=== PATIENT | female | born 1990 | race Caucasian/White ===

== ENCOUNTER 2020-05-07 10:45 | Outpatient (CLI) | payer BC, OTHER ==
[~2020-05-07] VITALS: Ht 180.3 cm; Wt 134.1 kg
[2020-05-07 10:56] VITALS: BP 108/69
[2020-05-07 11:52] LABS: MICROSCOPIC INDICATED
[2020-05-07 11:56] LABS: AMPHETAMINE SCREEN, URINE Negative (Negative); BARBITURATE SCREEN, URINE Negative (Negative); BENZODIAZEPINE SCREEN, URINE Negative (Negative); CANNABINOID SCREEN, URINE Negative (Negative); COCAINE SCREEN, URINE Negative (Negative); METHADONE SCREEN, URINE Negative (Negative); OPIATE SCREEN, URINE Negative (Negative)
== END 2020-05-07 12:35 | disposition home or self-care (01) ==
LOC: LDOP 10:45
PROVIDERS: ATTEND Obstetrics & Gynecology
DX: O26.893 Other specified pregnancy related conditions, third trimester (principal); R10.9 Unspecified abdominal pain; Z3A.35 35 weeks gestation of pregnancy
CPT/HCPCS: 59025; 80307; 81001; 87086

== ENCOUNTER 2020-06-03 06:24 | Inpatient (IN) | payer BC, OTHER ==
[~2020-06-03] VITALS: Ht 177.8 cm; Wt 90.5 kg
[2020-06-03] MEDS ORDERED: FENTANYL PF 100 MCG/2ML IVPush PRN (06:30)
[2020-06-03] MEDS ORDERED: TERBUTALINE 1 MG/ML, 1ML SQ PRN (06:30)
[2020-06-03] MEDS ORDERED: TERBUTALINE 1 MG/ML, 1ML IVPush PRN (06:30)
[2020-06-03] MEDS ORDERED: FENTANYL PF 100 MCG/2ML IV PRN (06:30)
[2020-06-03] MEDS ORDERED: ONDANSETRON 2MG/ML, 2ML IVPush PRN ×2 (06:30→15:30)
[2020-06-03] MEDS ORDERED: CALCIUM CARBONATE 500 MG TAB.CHEW PO PRN (06:30)
[2020-06-03] MEDS ORDERED: OXYTOCIN 30U/ 0.9% NaCL 500ML 500 ML IV ONE (06:30)
[2020-06-03] MEDS ORDERED: OXYTOCIN 30U/ 0.9% NaCL 500ML 500 ML IV PRN (06:30)
[2020-06-03] MEDS ORDERED: NEWBORN KIT ONE (06:57)
[2020-06-03] MEDS ORDERED: LIDOCAINE 1%, 20ML ONE (06:57)
[2020-06-03] MEDS ORDERED: MISOPROSTOL 200 MCG TABLET ONE (06:57)
[2020-06-03] MEDS ORDERED: PLEASE ENTER HEIGHT AND WEIGHT MC SCH (07:00)
[2020-06-03] MEDS ORDERED: OXYTOCIN 30U/ 0.9% NaCL 500ML 500 ML ONE (07:31)
[2020-06-03 07:39] LABS: BASOPHILS % (AUTO) 0 % (0-1); EOSINOPHILS % (AUTO) 1 % (1-7); LYMPHOCYTES % (AUTO) 16 % (22-44); MEAN CORPUSCULAR HEMOGLOBIN 32.3 pg (27.0-34.8); MEAN PLATELET VOLUME 10.1 fL (7.4-10.4); MONOCYTES % (AUTO) 7 % (2-9); NEUTROPHILS % (AUTO) 76 % (42-75); PLATELET COUNT 179 x10^3/uL (130-400); RED BLOOD COUNT 3.77 x10^6/uL (3.82-5.3); RED CELL DISTRIBUTION WIDTH 13.6 % (9.6-15.2)
[2020-06-03] MEDS: LACTATED RINGERS 1,000 ML IV SCH ×4 (07:42→23:30)
[2020-06-03 07:49] LABS: MD NO
[2020-06-03 07:53] VITALS: BP 118/64
[2020-06-03] MEDS ORDERED: PREN1TAB60 PO (08:08)
[2020-06-03] MEDS ORDERED: ACETAMINOPHEN 325 MG TABLET PO STA (14:10)
[2020-06-03] MEDS ORDERED: ACETAMINOPHEN 325 MG TABLET ONE ×2 (14:15→20:31)
[2020-06-03] MEDS ORDERED: FENTANYL/BUPIV./NS/PF 250 ML EPIDCONT ONE (14:27)
[2020-06-03] MEDS ORDERED: BUPIVACAINE 0.25% ONE (14:27)
[2020-06-03] MEDS ORDERED: D5%-LACTATED RINGERS 1,000 ML IV SCH (15:00)
[2020-06-03] MEDS ORDERED: LACTATED RINGERS 1,000 ML IVBOLUS PRN (15:30)
[2020-06-03] MEDS ORDERED: DIPHENHYDRAMINE 50 MG/ML, 1ML IVPush PRN (15:30)
[2020-06-03] MEDS ORDERED: FENTANYL/BUPIV./NS/PF 250 ML EPIDCONT SCH (15:30)
[2020-06-03] MEDS ORDERED: EPHEDRINE 50 MG/ML, 1ML IVPush PRN (15:30)
[2020-06-03] MEDS ORDERED: NALOXONE 0.4 MG/ML, 1ML IVPush PRN (15:30)
[2020-06-03] MEDS ORDERED: ACETAMINOPHEN 325 MG TABLET PO ONE (21:00)
[2020-06-03] MEDS ORDERED: DEXTROSE 47%, 15GM GEL ONE (21:24)
[2020-06-03 22:00] VITALS: BP 98/61
[2020-06-04 02:00] VITALS: BP 100/61
[2020-06-04] MEDS ORDERED: OXYcodone/APAP 5/325MG TABLET ONE (02:25)
[2020-06-04] MEDS ORDERED: IBUPROFEN 600 MG TABLET ONE (02:25)
[2020-06-04] MEDS ORDERED: CARBOPROST TROMETHAMINE 250 MCG/ML, 1ML IM PRN (02:30)
[2020-06-04] MEDS ORDERED: MISOPROSTOL 200 MCG TABLET SL PRN ×3 (02:30)
[2020-06-04] MEDS ORDERED: HYDROcodone/APAP 5/325 TABLET PO PRN ×2 (02:30)
[2020-06-04] MEDS: OXYTOCIN 30U/ 0.9% NaCL 500ML 500 ML IV SCH ×2 (02:30→12:04)
[2020-06-04] MEDS ORDERED: GLYCERIN ADULT SUPP PR PRN (02:30)
[2020-06-04] MEDS ORDERED: CALCIUM CARBONATE 500 MG TAB.CHEW PO PRN (02:30)
[2020-06-04] MEDS ORDERED: BISACODYL 10 MG SUPP PR PRN (02:30)
[2020-06-04] MEDS ORDERED: OXYcodone/APAP 5/325MG TABLET PO PRN (02:30)
[2020-06-04] MEDS ORDERED: ONDANSETRON 2MG/ML, 2ML IV PRN (02:30)
[2020-06-04] MEDS ORDERED: SIMETHICONE 80 MG CHEW TAB PO PRN (02:30)
[2020-06-04] MEDS ORDERED: ACETAMINOPHEN 325 MG TABLET PO PRN (02:30)
[2020-06-04] MEDS ORDERED: IBUPROFEN 800 MG TABLET PO PRN (02:30)
[2020-06-04] MEDS ORDERED: OXYcodone IR 5MG TABLET PO PRN (02:30)
[2020-06-04] MEDS ORDERED: MISOPROSTOL 200 MCG TABLET PO PRN ×3 (02:30)
[2020-06-04] MEDS ORDERED: METHYLERGONOVINE 0.2 MG/ML IM PRN (02:30)
[2020-06-04] MEDS ORDERED: DOCUSATE 100 MG CAPSULE PO PRN (02:30)
[2020-06-04] MEDS ORDERED: METOCLOPRAMIDE 5 MG/ML, 2ML IV PRN (02:30)
[2020-06-04] MEDS ORDERED: MISOPROSTOL 200 MCG TABLET PR PRN ×3 (02:30)
[2020-06-04] MEDS: IBUPROFEN 600 MG TABLET PO PRN ×3 (02:33→14:40)
[2020-06-04] MEDS: OXYcodone/APAP 5/325MG TABLET PO PRN ×5 (02:33→20:39)
[2020-06-04 05:27] LABS: BASOPHILS % (AUTO) 0 % (0-1); EOSINOPHILS % (AUTO) 1 % (1-7); LYMPHOCYTES % (AUTO) 20 % (22-44); MEAN CORPUSCULAR HEMOGLOBIN 32.2 pg (27.0-34.8); MEAN CORPUSCULAR HGB CONC 34.7 g/dL (32.4-35.8); MEAN PLATELET VOLUME 10.5 fL (7.4-10.4); MONOCYTES % (AUTO) 6 % (2-9); NEUTROPHILS % (AUTO) 74 % (42-75); PLATELET COUNT 157 x10^3/uL (130-400); RED BLOOD COUNT 3.38 x10^6/uL (3.82-5.3)
[2020-06-04 05:29] LABS: MD NO
[2020-06-04 05:55] VITALS: BP 102/62
[2020-06-04 08:30] VITALS: BP 102/68
[2020-06-04] MEDS ORDERED: PRENATAL VIT/IRON/FA 1 EACH TABLET PO SCH (09:00)
[2020-06-04 12:02] VITALS: BP 107/71
[2020-06-04] MEDS ORDERED: IBUP-1222 PO (13:47)
[2020-06-04 16:18] VITALS: BP 104/64
[2020-06-04 20:00] VITALS: BP 98/65
== END 2020-06-04 20:51 | disposition home or self-care (01) | DRG 807 ==
LOC: LDIP 06:24 → 2NW 21:40
PROVIDERS: ADMIT Obstetrics & Gynecology; ATTEND Obstetrics & Gynecology
PROC: 0KQM0ZZ Repair Perineum Muscle, Open Approach (ICD-10-PCS; principal; 2020-06-03)
PROC: 10E0XZZ Delivery of Products of Conception, External Approach (ICD-10-PCS; 2020-06-03)
PROC: 10907ZC Drainage of Amniotic Fluid, Therapeutic from Products of Conception, Via Natural or Artificial Opening (ICD-10-PCS; 2020-06-03)
PROC: 3E0R3BZ Introduction of Anesthetic Agent into Spinal Canal, Percutaneous Approach (ICD-10-PCS; 2020-06-03)
PROC: 00HU33Z Insertion of Infusion Device into Spinal Canal, Percutaneous Approach (ICD-10-PCS; 2020-06-03)
DX: O70.1 Second degree perineal laceration during delivery (principal); Z37.0 Single live birth; Z3A.39 39 weeks gestation of pregnancy; Z20.822 Contact with and (suspected) exposure to COVID-19
CPT/HCPCS: 36415; 76818; 76819; 85025; 86592; 86850; 86900; G0378; J2590; J7120; U0003